=== PATIENT | female | born 1985 | race African-American/Black ===

== ENCOUNTER 2023-10-12 03:35 | Emergency (ER) | payer SELFPAY ==
[~2023-10-12] VITALS: Ht 160 cm; Wt 94.2 kg
[2023-10-12 03:49] VITALS: BP 145/87; PULSE 106; RESP 20; TEMP 98.4; O2SAT 100
[2023-10-12] MEDS ORDERED: DIPH25CA66 PO (05:05)
[2023-10-12] MEDS ORDERED: PRED20TA2 PO (05:05)
[2023-10-12] MEDS ORDERED: diphenhdrAMINE HCL 50 MG/1 ML VL IM ONE (05:15)
[2023-10-12] MEDS ORDERED: methylPREDNISolone SOD SUCC 125 MG/2 ML VL IM ONE (05:15)
== END 2023-10-12 05:30 | disposition home or self-care (01) ==
LOC: ER 03:35
DX: T78.49XA Other allergy, initial encounter (principal); Z79.899 Other long term (current) drug therapy; X58.XXXA Exposure to other specified factors, initial encounter
CPT/HCPCS: 96372; 99284; J1200; J2930

== ENCOUNTER 2024-04-26 05:33 | Inpatient (IN) | payer SELFPAY ==
[~2024-04-26] VITALS: Ht 162.6 cm; Wt 92.6 kg
[~2024-04-26 05:33] MED LIST: DIPH25CA66 PO; PRED20TA2 PO
[2024-04-26 06:40] LABS: Urine Bacteria None Seen /hpf (None Seen)
[2024-04-26 06:49] LABS: Urine Blood 2+ /uL (Negative); Urine Clarity Turbid (Clear); Urine Color Yellow (Yellow); Urine Mucus FEW (None Seen); Urine Protein, UAD 1+ (Negative); Urine Specific Gravity 1.028 (1.001-1.035); Urine Urobilinogen 3 mg/dL (Negative); Urine WBC 15 /hpf (0 - 5)
[2024-04-26 07:44] LABS: Basophils # (auto) 0 10 ^3/uL (0-0.2); Basophils % (auto) 0.6 % (0.0-2.0); Eosinophils # (auto) 0 10 ^3/uL (0-0.8); Eosinophils % (auto) 0.7 % (0.0-7.0); Hematocrit 36.2 % (36.0-46.0); Hemoglobin 12.4 g/dL (12.2-16.2); Lymphocytes % (auto) 19.4 % (10.0-50.0); Mean Corpuscular Hemoglobin 29.6 pg (28.0-32.0); Mean Corpuscular Hgb Conc. 34.2 g/dL (32.0-36.0); Mean Corpuscular Volume 86.7 fL (80.0-100.0); Monocytes # (auto) 0.5 10 ^3/uL (0-1.3); Neutrophils # (auto) 3.7 10 ^3/uL (1.6-8.6); Neutrophils % (auto) 69.3 % (37.0-80.0); Nucleated Red Blood Cells % 0.2 %; Red Blood Cells 4.18 10^6/uL (4.0-5.20); Red Cell Distribution Width 17.7 % (11.8-14.3); White Blood Cell 5.4 10^3/uL (4.4-10.8)
[2024-04-26 08:02] LABS: Alanine Aminotransferase 12 U/L (7-40); Albumin 4.1 g/dL (3.2-4.8); Alkaline Phosphatase 63 U/L (46-116); Anion Gap 9 (5-15); Aspartate Aminotransferase < 8 U/L (13-40); BUN/Creatinine Ratio 7.9 (10.0-20.0); Bilirubin, Total 0.7 mg/dL (0.2-1.0); Blood Urea Nitrogen 6 mg/dL (9-23); Calcium 9.2 mg/dL (8.7-10.4); Carbon Dioxide 28 mmol/L (20-30); Chloride 98 mmol/L (98-107); Glucose 100 mg/dL (74-106); Lipase 44 U/L (12-53); Magnesium 2.2 mg/dL (1.6-2.6); Potassium 2.9 mmol/L (3.5-5.1); Sodium 135 mmol/L (136-145); Total Protein 7.1 g/dL (5.7-8.2)
[2024-04-26 08:08] VITALS: PULSE 78; RESP 18; O2SAT 100
[2024-04-26] MEDS: SODIUM CHLORIDE 0.9% 1,000 ML IVB ONE (08:12)
[2024-04-26] MEDS: PROCHLORPERAZINE MALEATE 10 MG TAB PO ONE (08:18)
[2024-04-26] MEDS: KETOROLAC TROMETH 30 MG/ML 1ML VIAL IV ONE (08:19)
[2024-04-26] MEDS: IOHEXOL 300 MG/ML 100ML BOTTLE IJ ONE (08:25)
[2024-04-26] MEDS: POTASSIUM EFFERVESENT TAB 25 MEQ PO ONE (08:53)
[2024-04-26] MEDS ORDERED: ACETAMINOPHEN 325 MG TAB PO PRN (12:00)
[2024-04-26] MEDS ORDERED: ONDANSETRON HCL 4 MG/2 ML VIAL IV PRN (12:00)
[2024-04-26] MEDS: LACTATED RINGER'S 1,000 ML IV ONE (13:15)
[2024-04-26] MEDS: HYDROcodone-ACET 5/325MG TAB PO PRN (13:15)
[2024-04-26] MEDS: cefTRIAXone 1GM/50ML D5W 50 ML IV SCH (13:17)
[2024-04-26 13:32] LABS: Anion Gap 6 (5-15); Carbon Dioxide 28 mmol/L (20-30); Chloride 101 mmol/L (98-107); Potassium 3.3 mmol/L (3.5-5.1); Sodium 135 mmol/L (136-145)
[2024-04-26 13:37] LABS: Glucose 89 mg/dL (74-106)
[2024-04-26 13:38] LABS: BUN/Creatinine Ratio 9.2 (10.0-20.0); Blood Urea Nitrogen 6 mg/dL (9-23)
[2024-04-26] MEDS: SODIUM CHLOR 0.9% PF (SALINE LOCK) 10ML VIAL/SYR IV SCH (14:03)
[2024-04-26 16:05] VITALS: BP 123/73; PULSE 77; RESP 18; TEMP 97.6; O2SAT 96
[2024-04-26 16:06] VITALS: BP 123/73; PULSE 77; RESP 18; TEMP 97.6; O2SAT 96
[2024-04-26] MEDS: HYDROmorphone HCL 2 MG/ML VL/or syr IV PRN (16:53)
[2024-04-26 21:00] VITALS: BP 110/69; PULSE 92; RESP 20; TEMP 97.9; O2SAT 100
[2024-04-27] VITALS (7 sets, daily range): BP systolic 102–124; BP diastolic 69–79; PULSE 63–84; RESP 14–20; TEMP 97.8–98.3; O2SAT 98–100
[2024-04-27] MEDS: ENOXAPARIN SOD 40 MG/0.4 ML SYRINGE SC SCH (08:58)
[2024-04-28 01:00] VITALS: BP 122/79; PULSE 74; RESP 22; TEMP 98; O2SAT 100
[2024-04-28 04:56] VITALS: BP 107/74; PULSE 83; RESP 22; TEMP 98; O2SAT 100
[2024-04-28 08:00] VITALS: BP 108/62; PULSE 76; PULSE 80; RESP 16; RESP 18; TEMP 97.8; O2SAT 97; O2SAT 98
[2024-04-28 12:00] VITALS: BP 98/54; PULSE 68; RESP 16; TEMP 98; O2SAT 95
[2024-04-28] MEDS: HYDROcodone-ACET 5/325MG TAB PO PRN (15:37)
[2024-04-28 16:00] VITALS: BP 119/84; PULSE 70; RESP 16; TEMP 98.1; O2SAT 99
[2024-04-28 21:00] VITALS: BP 105/67; PULSE 95; RESP 19; TEMP 98; O2SAT 98
[2024-04-28] MEDS: HYDROcodone-ACET 10/325MG TAB PO PRN (21:03)
[2024-04-29] VITALS (7 sets, daily range): BP systolic 102–126; BP diastolic 58–78; PULSE 64–87; RESP 18–20; TEMP 98–98.7; O2SAT 97–99
[2024-04-29] MEDS: PANTOPRAZOLE 40 MG/10 ML VIAL INJ IV SCH ×2 (09:44→22:51)
[2024-04-29 10:04] LABS: Basophils # (auto) 0 10 ^3/uL (0-0.2); Basophils % (auto) 0.7 % (0.0-2.0); Eosinophils # (auto) 0.1 10 ^3/uL (0-0.8); Eosinophils % (auto) 2.3 % (0.0-7.0); Hematocrit 30.3 % (36.0-46.0); Hemoglobin 10.2 g/dL (12.2-16.2); Lymphocytes # (auto) 0.9 10 ^3/uL (0.4-5.4); Lymphocytes % (auto) 24.7 % (10.0-50.0); Mean Corpuscular Hemoglobin 29.2 pg (28.0-32.0); Mean Corpuscular Hgb Conc. 33.5 g/dL (32.0-36.0); Mean Corpuscular Volume 87.1 fL (80.0-100.0); Monocytes # (auto) 0.3 10 ^3/uL (0-1.3); Monocytes % (auto) 9.4 % (0.0-12.0); Neutrophils # (auto) 2.2 10 ^3/uL (1.6-8.6); Neutrophils % (auto) 62.9 % (37.0-80.0); Nucleated Red Blood Cells % 0.1 %; Red Blood Cells 3.48 10^6/uL (4.0-5.20); Red Cell Distribution Width 18.2 % (11.8-14.3); White Blood Cell 3.5 10^3/uL (4.4-10.8)
[2024-04-29 10:22] LABS: Anion Gap 4 (5-15); Carbon Dioxide 29 mmol/L (20-30); Chloride 105 mmol/L (98-107); Potassium 3.1 mmol/L (3.5-5.1); Sodium 138 mmol/L (136-145)
[2024-04-29 10:23] LABS: Calcium 8.6 mg/dL (8.7-10.4)
[2024-04-29 10:28] LABS: Blood Urea Nitrogen 6 mg/dL (9-23); Glucose 113 mg/dL (74-106)
[2024-04-29] MEDS ORDERED: MORPHINE SULFATE INJ 2 MG/ml SYRG IV PRN ×2 (17:00→18:00)
[2024-04-29] MEDS: POTASSIUM CHLORIDE 40 MEQ in SOD CHL 0.45% 1,000 ML IV SCH (19:28)
[2024-04-30 01:00] VITALS: BP 110/62; PULSE 69; RESP 16; TEMP 98.4; O2SAT 99
[2024-04-30 05:00] VITALS: BP 109/70; PULSE 66; RESP 18; TEMP 97.9; O2SAT 97
[2024-04-30 06:46] LABS: Chloride 109 mmol/L (98-107); Sodium 138 mmol/L (136-145)
[2024-04-30 06:47] LABS: Anion Gap 2 (5-15); Calcium 8.3 mg/dL (8.7-10.4); Carbon Dioxide 27 mmol/L (20-30)
[2024-04-30 06:50] LABS: Basophils # (auto) 0 10 ^3/uL (0-0.2); Basophils % (auto) 0.5 % (0.0-2.0); Eosinophils # (auto) 0.1 10 ^3/uL (0-0.8); Eosinophils % (auto) 1.8 % (0.0-7.0); Hematocrit 29.2 % (36.0-46.0); Hemoglobin 9.8 g/dL (12.2-16.2); Lymphocytes # (auto) 1.1 10 ^3/uL (0.4-5.4); Lymphocytes % (auto) 27.7 % (10.0-50.0); Mean Corpuscular Hemoglobin 29.3 pg (28.0-32.0); Mean Corpuscular Hgb Conc. 33.7 g/dL (32.0-36.0); Mean Corpuscular Volume 86.9 fL (80.0-100.0); Monocytes # (auto) 0.4 10 ^3/uL (0-1.3); Monocytes % (auto) 10.2 % (0.0-12.0); Neutrophils # (auto) 2.4 10 ^3/uL (1.6-8.6); Neutrophils % (auto) 59.8 % (37.0-80.0); Nucleated Red Blood Cells % 0.2 %; Red Blood Cells 3.36 10^6/uL (4.0-5.20); Red Cell Distribution Width 18.3 % (11.8-14.3); White Blood Cell 3.9 10^3/uL (4.4-10.8)
[2024-04-30 06:52] LABS: Glucose 86 mg/dL (74-106)
[2024-04-30 06:57] LABS: BUN/Creatinine Ratio 9.1 (10.0-20.0); Blood Urea Nitrogen < 5 mg/dL (9-23)
[2024-04-30 08:00] VITALS: PULSE 78; RESP 18; O2SAT 97
[2024-04-30 09:00] VITALS: BP 105/70; PULSE 69; RESP 18; TEMP 98.1; O2SAT 97
[2024-04-30] MEDS: GASTROGRAFIN 120 ML SOL ONE (09:09)
[2024-04-30 12:25] VITALS: BP 107/69; PULSE 62; RESP 18; TEMP 96.9; O2SAT 97
[2024-04-30] MEDS ORDERED: SUCR1TAB31 OR (17:49)
[2024-04-30] MEDS ORDERED: PANT40TA2 PO (17:49)
== END 2024-04-30 15:50 | disposition home or self-care (01) | DRG 384 ==
LOC: ER 05:33 → OVERFLOW 11:47 → WEST WING 15:55
PROVIDERS: ADMIT Internal Medicine; ATTEND Nurse Practitioner Acute Care
DX: K26.9 Duodenal ulcer, unspecified as acute or chronic, without hemorrhage or perforation (principal); N30.00 Acute cystitis without hematuria; K29.80 Duodenitis without bleeding; K52.9 Noninfective gastroenteritis and colitis, unspecified; D25.9 Leiomyoma of uterus, unspecified; E87.6 Hypokalemia; E66.9 Obesity, unspecified; Z98.51 Tubal ligation status; Z80.1 Family history of malignant neoplasm of trachea, bronchus and lung; Z59.7 Insufficient social insurance and welfare support; Z68.35 Body mass index [BMI] 35.0-35.9, adult
CPT/HCPCS: 36415; 71046; 74177; 74246; 80048; 80053; 81001; 81025; 83605; 83690; 83735; 84702; 85025; 87086; 96361; 96374; G0378; J1885; J2470; Q0164

== ENCOUNTER 2024-06-27 21:23 | Inpatient (IN) | payer SELFPAY ==
[~2024-06-27] VITALS: Ht 160 cm; Wt 89.8 kg
[~2024-06-27 21:23] MED LIST changes: +PANT40TA2 PO; +SUCR1TAB31 OR
[2024-06-27 22:22] VITALS: PULSE 83; RESP 16; O2SAT 100
[2024-06-27] MEDS: SODIUM CHLORIDE 0.9% 1,000 ML IV ONE (22:22)
[2024-06-27] MEDS: ONDANSETRON HCL 4 MG/2 ML VIAL IV ONE (22:22)
[2024-06-27] MEDS: MORPHINE SULFATE 4 MG/ML SYR/VIAL IV ONE (22:22)
[2024-06-27] MEDS: FAMOTIDINE (10MG/ML) 2ML VL IV ONE (22:22)
[2024-06-27 22:34] LABS: Basophils # (auto) 0 10 ^3/uL (0-0.2); Basophils % (auto) 0.5 % (0.0-2.0); Eosinophils # (auto) 0 10 ^3/uL (0-0.8); Eosinophils % (auto) 0.1 % (0.0-7.0); Hemoglobin 10.4 g/dL (12.2-16.2); Monocytes # (auto) 0.5 10 ^3/uL (0-1.3)
[2024-06-27 22:35] LABS: Hematocrit 32.3 % (36.0-46.0); Lymphocytes % (auto) 14.3 % (10.0-50.0); Mean Corpuscular Hemoglobin 25.2 pg (28.0-32.0); Mean Corpuscular Hgb Conc. 32.2 g/dL (32.0-36.0); Mean Corpuscular Volume 78.1 fL (80.0-100.0); Monocytes % (auto) 7.2 % (0.0-12.0); Neutrophils # (auto) 5.3 10 ^3/uL (1.6-8.6); Neutrophils % (auto) 77.9 % (37.0-80.0); Nucleated Red Blood Cells % 0.1 %; Platelet Count (auto) 361 10^3/uL (140-450); Red Blood Cells 4.13 10^6/uL (4.0-5.20); Red Cell Distribution Width 17.6 % (11.8-14.3); White Blood Cell 6.8 10^3/uL (4.4-10.8)
[2024-06-27 22:45] LABS: Alanine Aminotransferase 11 U/L (7-40); Albumin 4.2 g/dL (3.2-4.8); Alkaline Phosphatase 68 U/L (46-116); Anion Gap 7 (5-15); Aspartate Aminotransferase < 8 U/L (13-40); BUN/Creatinine Ratio 8.8 (10.0-20.0); Blood Urea Nitrogen 6 mg/dL (9-23); Calcium 9.5 mg/dL (8.7-10.4); Carbon Dioxide 26 mmol/L (20-31); Chloride 103 mmol/L (98-107); Glucose 106 mg/dL (74-106); Potassium 3.4 mmol/L (3.5-5.1); Sodium 136 mmol/L (136-145)
[2024-06-27 22:46] LABS: Total Protein 7.4 g/dL (5.7-8.2)
[2024-06-28 02:23] LABS: Urine Bacteria FEW /hpf (None Seen); Urine Blood Negative /uL (Negative); Urine Clarity Clear (Clear); Urine Color Light-Yellow (Yellow); Urine Mucus FEW (None Seen); Urine Protein, UAD TRACE (Negative); Urine Specific Gravity 1.027 (1.001-1.035); Urine Urobilinogen 3 mg/dL (Negative); Urine WBC 4 /hpf (0 - 5)
[2024-06-28] MEDS: POTASSIUM CHL 20 Meq TABLET PO ONE (06:35)
[2024-06-28 08:13] LABS: Basophils # (auto) 0 10 ^3/uL (0-0.2); Basophils % (auto) 0.3 % (0.0-2.0); Eosinophils # (auto) 0 10 ^3/uL (0-0.8); Eosinophils % (auto) 0.4 % (0.0-7.0); Hematocrit 31.7 % (36.0-46.0); Hemoglobin 10.3 g/dL (12.2-16.2); Lymphocytes # (auto) 1.2 10 ^3/uL (0.4-5.4); Lymphocytes % (auto) 19.4 % (10.0-50.0); Mean Corpuscular Hemoglobin 25.8 pg (28.0-32.0); Mean Corpuscular Hgb Conc. 32.5 g/dL (32.0-36.0); Mean Corpuscular Volume 79.2 fL (80.0-100.0); Monocytes # (auto) 0.6 10 ^3/uL (0-1.3); Monocytes % (auto) 9.9 % (0.0-12.0); Neutrophils # (auto) 4.3 10 ^3/uL (1.6-8.6); Nucleated Red Blood Cells % 0.1 %; Platelet Count (auto) 348 10^3/uL (140-450); Red Cell Distribution Width 17.5 % (11.8-14.3); White Blood Cell 6.1 10^3/uL (4.4-10.8)
[2024-06-28 08:28] LABS: Alanine Aminotransferase 12 U/L (7-40); Albumin 4.2 g/dL (3.2-4.8); Alkaline Phosphatase 65 U/L (46-116); Anion Gap 7 (5-15); Aspartate Aminotransferase < 8 U/L (13-40); BUN/Creatinine Ratio 7.2 (10.0-20.0); Bilirubin, Total 1.1 mg/dL (0.2-1.0); Blood Urea Nitrogen 5 mg/dL (9-23); Calcium 9.3 mg/dL (8.7-10.4); Carbon Dioxide 24 mmol/L (20-31); Chloride 104 mmol/L (98-107); Potassium 3.5 mmol/L (3.5-5.1); Sodium 135 mmol/L (136-145); Total Protein 7.4 g/dL (5.7-8.2)
[2024-06-28 08:30] LABS: Glucose 83 mg/dL (74-106)
[2024-06-28] MEDS: FAMOTIDINE (10MG/ML) 2ML VL IV SCH (09:47)
[2024-06-28 13:36] LABS: Amphetamine Screen, Urine Neg (NEGATIVE); Barbiturate Scree,Urine Neg (NEGATIVE); Benzodiazephine Screen, Urine Neg (NEGATIVE); Cannabinoid Screen, Urine Neg (NEGATIVE); Cocaine Screen, Urine Neg (NEGATIVE); Opiate Scree,Urine Neg (NEGATIVE); Phencyclidine Screen, Urine Neg (NEGATIVE)
[2024-06-28 17:03] VITALS: BP 136/86; PULSE 79; RESP 16; TEMP 98.3; O2SAT 95
[2024-06-28 19:30] VITALS: PULSE 88; RESP 17; O2SAT 96
[2024-06-28 21:00] VITALS: BP 109/76; PULSE 86; RESP 18; TEMP 98; O2SAT 96
[2024-06-28] MEDS: MORPHINE SULFATE INJ 2 MG/ml SYRG IV PRN (22:32)
[2024-06-29] VITALS (7 sets, daily range): BP systolic 108–129; BP diastolic 66–85; PULSE 69–88; RESP 16–20; TEMP 98–98.5; O2SAT 95–100
[2024-06-29 07:15] LABS: Basophils # (auto) 0 10 ^3/uL (0-0.2); Eosinophils # (auto) 0 10 ^3/uL (0-0.8); Hemoglobin 9.8 g/dL (12.2-16.2); Neutrophils # (auto) 2.4 10 ^3/uL (1.6-8.6); Nucleated Red Blood Cells % 0.1 %; Red Cell Distribution Width 17.5 % (11.8-14.3); White Blood Cell 4.1 10^3/uL (4.4-10.8)
[2024-06-29 07:17] LABS: Basophils % (auto) 0.5 % (0.0-2.0); Eosinophils % (auto) 0.7 % (0.0-7.0); Hematocrit 29.7 % (36.0-46.0); Lymphocytes # (auto) 1.2 10 ^3/uL (0.4-5.4); Lymphocytes % (auto) 28.1 % (10.0-50.0); Mean Corpuscular Hemoglobin 26.4 pg (28.0-32.0); Mean Corpuscular Hgb Conc. 32.9 g/dL (32.0-36.0); Mean Corpuscular Volume 80.2 fL (80.0-100.0); Monocytes # (auto) 0.5 10 ^3/uL (0-1.3); Monocytes % (auto) 12.4 % (0.0-12.0); Neutrophils % (auto) 58.3 % (37.0-80.0); Platelet Count (auto) 288 10^3/uL (140-450)
[2024-06-29 07:27] LABS: Chloride 106 mmol/L (98-107); Potassium 3.7 mmol/L (3.5-5.1); Sodium 137 mmol/L (136-145)
[2024-06-29 07:28] LABS: Anion Gap 6 (5-15); Calcium 8.9 mg/dL (8.7-10.4); Carbon Dioxide 25 mmol/L (20-31)
[2024-06-29 07:33] LABS: BUN/Creatinine Ratio 9.1 (10.0-20.0); Blood Urea Nitrogen 7 mg/dL (9-23); Glucose 82 mg/dL (74-106)
[2024-06-29] MEDS: HYDROcodone-ACET 5/325MG TAB PO PRN (09:07)
[2024-06-29] MEDS: MORPHINE SULFATE INJ 2 MG/ml SYRG IV PRN (17:59)
[2024-06-29] MEDS: PANTOPRAZOLE 40 MG/10 ML VIAL INJ IV SCH (21:36)
[2024-06-30 05:00] VITALS: BP 104/67; PULSE 68; RESP 17; TEMP 98.2; O2SAT 97
[2024-06-30 08:30] VITALS: PULSE 83; RESP 16
[2024-06-30 08:45] VITALS: BP 116/85; PULSE 83; RESP 16; TEMP 98.6; O2SAT 98
[2024-06-30] MEDS: IOHEXOL 300 MG/ML 100ML BOTTLE IJ ONE (10:17)
[2024-06-30 12:50] VITALS: BP 103/66; PULSE 85; RESP 18; TEMP 98; O2SAT 97
[2024-06-30 19:30] VITALS: PULSE 85; RESP 17; O2SAT 96
[2024-06-30 21:00] VITALS: BP 119/74; PULSE 78; RESP 17; TEMP 98.2; O2SAT 99
[2024-07-01] VITALS (7 sets, daily range): BP systolic 108–125; BP diastolic 71–84; PULSE 64–76; RESP 14–20; TEMP 97.9–98.7; O2SAT 98–100
[2024-07-01 07:04] LABS: Basophils # (auto) 0 10 ^3/uL (0-0.2); Neutrophils # (auto) 3.2 10 ^3/uL (1.6-8.6); Red Cell Distribution Width 18.1 % (11.8-14.3)
[2024-07-01 07:07] LABS: Basophils % (auto) 0.6 % (0.0-2.0); Eosinophils # (auto) 0 10 ^3/uL (0-0.8); Eosinophils % (auto) 0.8 % (0.0-7.0); Hematocrit 31.5 % (36.0-46.0); Lymphocytes # (auto) 1.2 10 ^3/uL (0.4-5.4); Lymphocytes % (auto) 23.8 % (10.0-50.0); Mean Corpuscular Hgb Conc. 31.7 g/dL (32.0-36.0); Mean Corpuscular Volume 78.7 fL (80.0-100.0); Monocytes # (auto) 0.5 10 ^3/uL (0-1.3); Monocytes % (auto) 10.3 % (0.0-12.0); Neutrophils % (auto) 64.5 % (37.0-80.0); Nucleated Red Blood Cells % 0.4 %; Platelet Count (auto) 330 10^3/uL (140-450)
[2024-07-01 07:21] LABS: Anion Gap 7 (5-15); Carbon Dioxide 25 mmol/L (20-31); Chloride 106 mmol/L (98-107); Potassium 3.7 mmol/L (3.5-5.1); Sodium 138 mmol/L (136-145)
[2024-07-01 07:23] LABS: Calcium 8.3 mg/dL (8.7-10.4)
[2024-07-01 07:27] LABS: BUN/Creatinine Ratio 9.2 (10.0-20.0); Blood Urea Nitrogen 8 mg/dL (9-23); Glucose 84 mg/dL (74-106)
[2024-07-01] MEDS ORDERED: FLUMAZENIL 0.1 MG/ML INJ 10ML MDV IV ONE (11:27)
[2024-07-01] MEDS ORDERED: SODIUM CHLORIDE LOCK 10 ML ONE (11:27)
[2024-07-01] MEDS ORDERED: NALOXONE HCL 0.4 MG/ML VIAL ONE (11:27)
[2024-07-01] MEDS ORDERED: SIMETHICONE 40 MG/0.6 ML ORAL DROP ONE (11:28)
[2024-07-01] MEDS: LIDOCAINE VISCOUS 2% 15ML UD ONE (11:32)
[2024-07-01] MEDS: fentaNYL CITRATE 100 MCG/2 ML VL ONE (11:34)
[2024-07-01] MEDS: diphenhdrAMINE HCL 50 MG/1 ML VL ONE (11:34)
[2024-07-01] MEDS: MIDAZOLAM HCL 5 MG/ML-1ML VIAL ONE (11:34)
[2024-07-01] MEDS ORDERED: EPINEPHrine HCL 1 MG/10 ML SYRG ONE (11:43)
[2024-07-02 05:25] LABS: Basophils # (auto) 0 10 ^3/uL (0-0.2); Basophils % (auto) 0.3 % (0.0-2.0); Eosinophils # (auto) 0.1 10 ^3/uL (0-0.8); Hematocrit 30.2 % (36.0-46.0); Hemoglobin 9.8 g/dL (12.2-16.2); Lymphocytes % (auto) 25.6 % (10.0-50.0); Mean Corpuscular Hemoglobin 25.8 pg (28.0-32.0); Mean Corpuscular Hgb Conc. 32.5 g/dL (32.0-36.0); Mean Corpuscular Volume 79.2 fL (80.0-100.0); Monocytes # (auto) 0.4 10 ^3/uL (0-1.3); Neutrophils # (auto) 2.3 10 ^3/uL (1.6-8.6); Neutrophils % (auto) 61.1 % (37.0-80.0); Nucleated Red Blood Cells % 0.1 %; Platelet Count (auto) 310 10^3/uL (140-450); Red Blood Cells 3.81 10^6/uL (4.0-5.20); White Blood Cell 3.8 10^3/uL (4.4-10.8)
[2024-07-02 05:38] LABS: Albumin 3.6 g/dL (3.2-4.8); Alkaline Phosphatase 53 U/L (46-116); Anion Gap 6 (5-15); Aspartate Aminotransferase < 8 U/L (13-40); BUN/Creatinine Ratio 7.7 (10.0-20.0); Blood Urea Nitrogen 6 mg/dL (9-23); Calcium 8.9 mg/dL (8.7-10.4); Carbon Dioxide 23 mmol/L (20-31); Chloride 107 mmol/L (98-107); Glucose 79 mg/dL (74-106); Potassium 3.8 mmol/L (3.5-5.1); Sodium 136 mmol/L (136-145)
[2024-07-02 05:39] LABS: Bilirubin, Total 0.9 mg/dL (0.2-1.0); Total Protein 6.5 g/dL (5.7-8.2)
[2024-07-02 05:41] LABS: Alanine Aminotransferase < 9 U/L (7-40)
[2024-07-02 08:00] VITALS: PULSE 62; PULSE 75; RESP 18; O2SAT 99
[2024-07-02 09:00] VITALS: BP 117/72; PULSE 62; RESP 18; TEMP 98.8; O2SAT 99
[2024-07-02 13:00] VITALS: BP 123/77; PULSE 72; RESP 16; O2SAT 99
[2024-07-02] MEDS ORDERED: SUCR1SUS26 GT (14:01)
[2024-07-02] MEDS ORDERED: FAMO-12 PO ×2 (14:01→15:06)
[2024-07-02] MEDS ORDERED: SUCR1SUS26 PO (15:06)
[2024-07-02 16:08] VITALS: BP 117/72; PULSE 62; RESP 18; TEMP 98; O2SAT 99
[2024-07-02] MEDS: SUCRALFATE 1 GM/10 ML ORAL SUSP GT SCH (17:00)
== END 2024-07-02 17:30 | disposition home or self-care (01) | DRG 379 ==
LOC: ER 21:23 → EDBD 21:23 → EDUNIT# 21:23 → OVERFLOW 06-28 06:29 → EAST 06-28 14:06 → TELE-EAST 07-01 22:08
PROVIDERS: ADMIT Internal Medicine; ATTEND Internal Medicine
PROC: 0DB68ZX Excision of Stomach, Via Natural or Artificial Opening Endoscopic, Diagnostic (ICD-10-PCS; 2024-07-01)
PROC: 3E0G8GC Introduction of Other Therapeutic Substance into Upper GI, Via Natural or Artificial Opening Endoscopic (ICD-10-PCS; 2024-07-01)
PROC: 0DB98ZX Excision of Duodenum, Via Natural or Artificial Opening Endoscopic, Diagnostic (ICD-10-PCS; principal; 2024-07-01 11:29)
DX: K26.4 Chronic or unspecified duodenal ulcer with hemorrhage (principal); K29.90 Gastroduodenitis, unspecified, without bleeding; D25.9 Leiomyoma of uterus, unspecified; E87.6 Hypokalemia; D36.9 Benign neoplasm, unspecified site; K29.80 Duodenitis without bleeding; D50.9 Iron deficiency anemia, unspecified; K44.9 Diaphragmatic hernia without obstruction or gangrene; K29.70 Gastritis, unspecified, without bleeding; K25.9 Gastric ulcer, unspecified as acute or chronic, without hemorrhage or perforation
CPT/HCPCS: 36415; 43239; 43255; 80048; 80053; 80307; 80320; 81001; 81025; 82270; 83986; 85025; 87045; 87427; 96361; 96374; 96375; G0378; J2250; J2405; J2470; J3490